=== PATIENT | male | born 1990 | race Caucasian/White ===

== ENCOUNTER 2018-07-09 12:04 | Emergency (ER) | payer OTHER ==
--- NOTE | 2018-07-09 12:34 | ED ---
ENT HPI - General Chief complaint: ENT Stated complaint: Ear Pain Time Seen by Provider: 07/09/18 12:24 Source: patient, RN notes reviewed Mode of arrival: ambulatory Limitations: no limitations - History of Present Illness Initial comments: 28-year-old male presents emergency Department chief complaint of difficulty hearing. Patient states that his ears have been plugged up for one week. Denies any pain, fever, chills, headache or dizziness. Denies any nasal congestion or cough no URI symptoms. Patient states she could use some over-the -counter eardrops no relief at this time. - Related Data Home Medications Medication Instructions Recorded Confirmed No Known Home Medications 07/09/18 07/09/18 Allergies Allergy/AdvReac Type Severity Reaction Status Date / Time No Known Allergies Allergy Verified 07/09/18 12:32 Review of Systems ROS Statement: Those systems with pertinent positive or pertinent negative responses have been documented in the HPI. ROS Other: All systems not noted in ROS Statement are negative. Past Medical History Past Medical History: No Reported History History of Any Multi-Drug Resistant Organisms: None Reported Past Surgical History: No Surgical Hx Reported Past Psychological History: No Psychological Hx Reported Smoking Status: Current every day smoker Past Alcohol Use History: Occasional Past Drug Use History: None Reported General Exam Limitations: no limitations General appearance: alert, in no apparent distress Head exam: Present: atraumatic, normocephalic, normal inspection Eye exam: Present: normal appearance, PERRL, EOMI. Absent: scleral icterus, conjunctival injection, periorbital swelling ENT exam: Present: normal oropharynx, mucous membranes moist. Absent: normal exam, normal external ear exam (Bilateral cerumen impaction) Neck exam: Present: normal inspection, full ROM. Absent: tenderness, meningismus, lymphadenopathy Respiratory exam: Present: normal lung sounds bilaterally. Absent: respiratory distress, wheezes, rales, rhonchi, stridor Cardiovascular Exam: Present: regular rate, normal rhythm, normal heart sounds. Absent: systolic murmur, diastolic murmur, rubs, gallop, clicks Skin exam: Present: warm, dry, intact, normal color. Absent: rash Course Vital Signs 07/09/18 12:11 Temperature 98.1 F Pulse Rate 112 H Respiratory 20 Rate Blood Pressure 144/80 O2 Sat by Pulse 97 Oximetry Procedures - Ear Wax Removal Both Ears Ear Canal Irrigated by: RN Ear Canal Irrigated With: warm saline with H2O2 using syringe/angiocath Results: Re-examined: cerumen removed completely TM Visible: TM(s) intact, normal appearance Ear Canal: atraumatic Patient Tolerated Procedure: well Complications: no problems Medical Decision Making - Medical Decision Making 20-year-old male presented for difficulty hearing. Patient has cerumen impaction this was removed with lavage patient tolerated well patient symptoms have improved will follow-up as needed. Disposition Clinical Impression: Cerumen impaction Disposition: HOME SELF-CARE Condition: Stable Instructions (If sedation given, give patient instructions): Cerumen Impaction (ED) Additional Instructions: Please return to the Emergency Department if symptoms worsen or any other concerns. Is patient prescribed a controlled substance at d/c from ED?: No Referrals: None,Stated [Primary Care Provider] - 1-2 days Time of Disposition: 14:14
[2018-07-09 14:50] VITALS: BP 138/78; PULSE 87; RESP 16; TEMP 98.6
== END 2018-07-09 14:49 | disposition home or self-care (01) ==
LOC: EC 12:04
DX: H61.23 Impacted cerumen, bilateral (principal); F17.200 Nicotine dependence, unspecified, uncomplicated
CPT/HCPCS: 69209; 99283

== ENCOUNTER 2022-06-03 18:26 | Emergency (ER) | payer BC, OTHER ==
[2022-06-03 18:34] VITALS: RESP 20
--- NOTE | 2022-06-03 19:17 | ED ---
ENT HPI - General Chief complaint: ENT Stated complaint: throat edema Time Seen by Provider: 06/03/22 19:04 Source: patient Mode of arrival: ambulatory Limitations: no limitations - History of Present Illness Initial comments: This 32-year-old male presents with the complaint of sore throat. He states that this started yesterday. He felt feverish last night but did not measure his temperature. He did try a throat spray as well as some cough drops. He denies any previous similar incidents. He does complain of pain with swallowing. There is no abdominal pain. He denies any known exposures to strep throat or mononucleosis. No other complaints or modifying factors. - Related Data Previous Rx's Medication Instructions Recorded Amoxicillin 500 mg PO Q8H #30 capsule 06/03/22 predniSONE [Deltasone] 20 mg PO BID #8 tab 06/03/22 Allergies Allergy/AdvReac Type Severity Reaction Status Date / Time No Known Allergies Allergy Verified 07/09/18 12:32 Review of Systems ROS Statement: Those systems with pertinent positive or pertinent negative responses have been documented in the HPI. ROS Other: All systems not noted in ROS Statement are negative. Past Medical History Past Medical History: No Reported History History of Any Multi-Drug Resistant Organisms: None Reported Past Surgical History: No Surgical Hx Reported Past Psychological History: No Psychological Hx Reported Past Alcohol Use History: Occasional Past Drug Use History: None Reported General Exam - General Exam Comments Initial Comments: GENERAL: The patient is well nourished and well hydrated. VITAL SIGNS: Heart rate, blood pressure, respiratory rate reviewed as recorded in nurse's notes. EYES: Pupils are round and reactive. Extraocular movements are intact. No conjunctival / lid redness or swelling. ENT: No external evidence of injury, swelling, or ecchymosis. Airway is patent. There is bilateral peritonsillar mild swelling with exudates. There is no identifiable peritonsillar abscess. NECK: Nontender. No swelling or evidence of injury. No subcutaneous emphysema. Trachea is midline. No thyroid mass. HEART: Regular rate and rhythm. Good peripheral pulses. LUNGS/CHEST: Breath sounds clear and equal bilaterally. No rales, rhonchi, or wheezes. No ecchymosis, subcutaneous emphysema, or tenderness. ABDOMEN: Abdomen soft without tenderness. No palpable masses or organomegaly. No peritoneal signs. No abdominal wall swelling or ecchymosis. EXTREMITIES: No extremity tenderness. Normal muscle tone and function. No thoracolumbar tenderness. NEUROLOGIC: Sensation is grossly intact. Cranial nerve exam reveals face is symmetrical, tongue is midline, speech is clear. SKIN: No abrasions or ecchymosis is noted. No induration or masses noted. PSYCHIATRIC: Alert and oriented. Appropriate behavior and judgment. Limitations: no limitations Course Vital Signs 06/03/22 18:32 Temperature 98.0 F Pulse Rate 119 H Respiratory 20 Rate Blood Pressure 133/86 O2 Sat by Pulse 96 Oximetry Medical Decision Making - Medical Decision Making The patient was seen and examined. It is felt as though his tonsils are infected. Antibiotics and steroids are prescribed. Tylenol and Motrin also are recommended. Return parameters are discussed in detail. They're currently is no evidence of any peritonsillar abscess but he is instructed that if his symptoms do worsen over the next couple days and to return to the emergency department. Was pt. sent in by a medical professional or institution? @ -No Did you speak to anyone other than the patient for history? @ -No Did you review nursing and triage notes? @ -Yes, agree Were old charts reviewed? @ -No Differential Diagnosis? @ -Tonsillitis, pharyngitis, peritonsillar abscess EKG interpreted by me (3pts min.)? @ -[none] X-rays interpreted by me (1pt min.)? @ -[none] CT interpreted by me (1pt min.)? @ -[none] U/S interpreted by me (1pt. min.)? @ -[none] What testing was considered but not performed? (CT, X-rays, U/S, labs)? Why? @ None What meds were considered but not given? Why? @ -[none] Did you discuss the management of the patient with other professionals? @ -None Did you reconcile home meds? @ -[none] Was smoking cessation discussed for >3mins.? @ -[none] Was critical care preformed (if so, how long)? @ -[none] Were there social determinants of health that impacted care today? How? (Homelessness, low income, unemployed, alcoholism, drug addiction, transportation, low edu. Level, literacy, decrease access to med. care, snf, rehab)? @ -None Was there de-escalation of care discussed even if they declined? (Discuss DNR or withdrawal of care, Hospice)? @ -None What co-morbidities impacted this encounter? (DM, HTN, Smoking, COPD, CAD, Cancer, CVA, Hep., AIDS, mental health diagnosis, sleep apnea, morbid obesity)? @ -None Was patient admitted / discharged? @ -Discharged Undiagnosed new problem with uncertain prognosis? @ -[none] Drug Therapy requiring intensive monitoring for toxicity (Heparin, Nitro, Insulin, Cardizem)? @ -[none] Were any procedures done? @ -[none] Diagnosis/symptom? @ -As above Acute, or Chronic, or Acute on Chronic? @ -Acute Uncomplicated (without systemic symptoms) or Complicated (systemic symptoms)? @ -Uncomplicated Side effects of treatment? @ -[none] Exacerbation, Progression, or Severe Exacerbation] @ -[no] Poses a threat to life or bodily function? @ -[no] Disposition Clinical Impression: Tonsillitis Disposition: HOME SELF-CARE Condition: Good Instructions (If sedation given, give patient instructions): Tonsillitis (ED) Additional Instructions: Please use Tylenol and/or Motrin as needed for pain and fever. Prescriptions: Amoxicillin 500 mg PO Q8H #30 capsule predniSONE [Deltasone] 20 mg PO BID #8 tab Is patient prescribed a controlled substance at d/c from ED?: No Referrals: None,Stated [Primary Care Provider] - 1-2 days Time of Disposition: 19:16
[2022-06-03] MEDS ORDERED: predniSONE 20 MG TAB PO STA (19:47)
[2022-06-03] MEDS ORDERED: AMOXICILLIN 500MG STARTER PACK 3 CAP BTL PO STA (19:47)
--- NOTE | 2022-06-03 19:50 | ED ---
ENT HPI - General Chief complaint: ENT Stated complaint: throat edema Time Seen by Provider: 06/03/22 19:04 Source: patient Mode of arrival: ambulatory Limitations: no limitations - Related Data Previous Rx's Medication Instructions Recorded Amoxicillin 500 mg PO Q8H #30 capsule 06/03/22 predniSONE [Deltasone] 20 mg PO BID #6 tab 06/03/22 Allergies Allergy/AdvReac Type Severity Reaction Status Date / Time No Known Allergies Allergy Verified 07/09/18 12:32 Review of Systems ROS Statement: Those systems with pertinent positive or pertinent negative responses have been documented in the HPI. ROS Other: All systems not noted in ROS Statement are negative. Past Medical History Past Medical History: No Reported History History of Any Multi-Drug Resistant Organisms: None Reported Past Surgical History: No Surgical Hx Reported Past Psychological History: No Psychological Hx Reported Past Alcohol Use History: Occasional Past Drug Use History: None Reported General Exam Limitations: no limitations Course Vital Signs 06/03/22 18:32 Temperature 98.0 F Pulse Rate 119 H Respiratory 20 Rate Blood Pressure 133/86 O2 Sat by Pulse 96 Oximetry Medical Decision Making - Lab Data Lab Results 06/03/22 06/03/22 Range/Units 18:37 18:37 Influenza Type A (PCR) Not Detected (Not Detectd) Influenza Type B (PCR) Not Detected (Not Detectd) RSV (PCR) Not Detected (Not Detectd) SARS-CoV-2 (PCR) Not Detected (Not Detectd) Group A Strep (PCR) NOT DETECTED (Not Detectd) Disposition Clinical Impression: Tonsillitis Disposition: HOME SELF-CARE Condition: Good Instructions (If sedation given, give patient instructions): Tonsillitis (ED) Additional Instructions: Please use Tylenol and/or Motrin as needed for pain and fever. Prescriptions: Amoxicillin 500 mg PO Q8H #30 capsule predniSONE [Deltasone] 20 mg PO BID #6 tab Is patient prescribed a controlled substance at d/c from ED?: No Referrals: None,Stated [Primary Care Provider] - 1-2 days Time of Disposition: 19:49
[2022-06-03 20:12] VITALS: BP 130/83; PULSE 106; TEMP 98.4
== END 2022-06-03 20:02 | disposition home or self-care (01) ==
LOC: EC 18:26
DX: J03.90 Acute tonsillitis, unspecified (principal); Z20.822 Contact with and (suspected) exposure to COVID-19
CPT/HCPCS: 87651; 87636; 99282; J7512; 99283